=== PATIENT | female | born 1945 | race Asian ===

== ENCOUNTER → 2017-10-14 | Outpatient (CLI) | payer OTHER, BC ==
[~2017-10-14] VITALS: Ht 149.9 cm; Wt 53.4 kg
[~2017-10-14] MED LIST: CALCIUM 600 +1 EAC1 PO; OMEPRAZOLE20 MG PO; VITAMIN D5000 UNI1 PO
[2017-10-14 09:05] VITALS: BP 177/82
== END | disposition home or self-care (01) ==
LOC: IVINF 08:56
DX: M81.0 Age-related osteoporosis without current pathological fracture (principal); Z87.19 Personal history of other diseases of the digestive system; Z88.0 Allergy status to penicillin; Z88.5 Allergy status to narcotic agent
CPT/HCPCS: 96365; J3489